=== PATIENT | female | born 1985 | race Caucasian/White ===

== ENCOUNTER 2018-06-09 06:46 | Inpatient (IN) | payer BC ==
[2018-06-09 07:51] VITALS: BMI 28.6
[2018-06-09] MEDS ORDERED: Ringers Lactate 1,000 ML IV PRN (07:51)
[2018-06-09] MEDS ORDERED: OXYTOCIN/LR 20 UNIT/1,000 ML BAG IV SCH ×2 (08:00→14:00)
[2018-06-09] MEDS ORDERED: Ringers Lactate 1,000 ML IV SCH (08:00)
[2018-06-09 08:31] LABS: RPR Titer ND
[2018-06-09 08:35] LABS: Absolute Lymphocytes (CBC) 2.2 K/uL (0.7-4.9); Absolute Monocytes 0.5 K/uL (0.1-1.3); Absolute Neutrophil 5.2 K/uL (1.8-8.0); Basophils % 1.1 % (0-1.3); Eosinophils % 1.4 % (0-4.4); Hematocrit 36.1 % (36.0-45.0); Lymphocytes % 27.5 % (15.3-44.8); MPV 11.1 fL (7.6-11.3); Monocytes % 5.6 % (3.3-12.3); RBC Red Blood Cell Count 4.09 M/uL (3.86-4.86)
[2018-06-09 08:53] LABS: Urine Appearance CLEAR; Urine Bilirubin NEGATIVE (NEG); Urine Blood NEGATIVE (NEG); Urine Color YELLOW; Urine Glucose NEGATIVE (NEG); Urine Protein NEGATIVE (NEG); Urine Specific Gravity 1.025 (1.005-1.030); Urine Urobilinogen 0.2 mg/dL (0.2-1.0); Urine pH 6.5 (5.0-7.0)
[2018-06-09 09:01] LABS: Urine Microscopic Reflex NO UMIC
[2018-06-09] MEDS ORDERED: FENTANYL CITR 100 MCG/2 ML IV ONE (09:26)
[2018-06-09] MEDS ORDERED: FENTANYL/BUPIVACAINE/NS/PF 200 MCG/100 ML BAG EP PRN (09:26)
[2018-06-09] MEDS ORDERED: BUPIVACAINE 0.25% PF 30 ML VIAL IV ONE (09:28)
--- NOTE | 2018-06-09 10:51 | PREOPHP ---
Date of Admission: 06/09/2018 History Of Present Illness: Ms. Piper is a 32-year-old female, 3, para 1- 0-1-1 now at 39+ weeks gestation. She has been followed by me during this without signific ant complications, now at term with a favorable cervix. She is scheduled for elective induction of l abor. Past Medical History: Please see record. Family History: Please see record. Review of Systems: She reports no recent cough, cold, fever, or chills. No recent nausea or vomiting. She denies any b reast lumps. Her baby has been active. She denies any significant vaginal bleeding. Physical Examination: General: Reveals a pleasant female, in no apparent distress. Neck: Supple without adenopathy or thyromegaly. Lungs: Clear. Cardiac: Regular rate and rhythm without murmurs. Breasts: Not examined. Abdomen: Estimated weight 6-1/2 to 7 pounds. Pelvic: Cervix noted to be 1+ cm dilated, 70% effaced. Cervix midposition, vertex, and -1 to -2 sta tion. Extremities: Trace lower extremity edema. Impression: 39+ week with favorable cervix. Plan: The patient will be admitted for elective induction of labor. She is beta strep negative. DEVANTE/DAVE Voice ID: [id number]
[2018-06-09] MEDS ORDERED: METHYLERGONOVINE 0.2MG/ML AMP IM ONE (12:46)
[2018-06-09] MEDS ORDERED: CARBOPROST TROME 250 MCG/ML IM ONE (12:46)
[2018-06-09] MEDS ORDERED: LIDOCAINE 2% INJ, 20 mL 20 ML ONE (13:05)
[2018-06-09] MEDS ORDERED: METHYLERGONOVINE 0.2 MG TAB PO PRN (13:19)
[2018-06-09] MEDS ORDERED: METHYLERGONOVINE 0.2MG/ML AMP IM PRN (13:19)
[2018-06-09] MEDS ORDERED: ONDANSETRON 4 MG (ODT) TAB PO PRN (13:19)
--- NOTE | 2018-06-09 14:08 | P.BOP ---
Preoperative diagnosis: 39+ week Postoperative diagnosis: Same, delivery viable female infant Primary procedure: SCVD female Secondary procedure: Repair of 2 degree midline laceration Estimated blood loss: 400ml Anesthesia: epidural Complications: None Transferred to: Other (274) Condition: Good
[2018-06-09] MEDS: Oxycodone HCl/Acetaminophen 1 TAB TAB PO PRN (16:41)
[2018-06-09] MEDS ORDERED: Ringers Lactate 1,000 ML IV ONE (18:31)
[2018-06-09] MEDS: IBUPROFEN 200 MG TAB PO PRN (21:08)
[2018-06-10 02:09] LABS: RPR (Rapid Plasma Reagin) NON-REACT (NON-REACT)
[2018-06-10] MEDS: IBUPROFEN 200 MG TAB PO PRN ×3 (03:25→16:41)
[2018-06-10] MEDS ORDERED: Ringers Lactate 1,000 ML IV ONE (08:48)
[2018-06-10] MEDS: Oxycodone HCl/Acetaminophen 1 TAB TAB PO PRN (12:00)
[2018-06-10 12:05] VITALS: BP 136/87; TEMP 97.9
--- NOTE | 2018-06-10 17:09 | OP ---
Surgeon: Miki Díaz MD Delivery Note: Carmen is a 32-year-old, , female, 3, para 1-0-1-1 now at 3 9+ weeks gestation, admitted for induction of labor. After she was noted to be 1+ to 2 cm on admissi on, rupture of membranes was performed and Pitocin induction of labor begun. She had an epidural cat heter placed, had a first stage of labor of 5 hours and 30 minutes, second stage of labor of 28 minut es. She delivered by spontaneous controlled vaginal delivery a 7-pound 1-ounce female , 9 and 9, after delayed cord clamping. The cord was clamped, cut, and the infant placed on mother's u pper abdomen. The placenta was spontaneously expelled after obtaining cord blood. She suffered a mi dline second-degree perineal laceration, which was repaired in the usual fashion with 3-0 Vicryl sutu re. Estimated total blood loss approximately 500 cc. Tolerated all procedures well. Epidural with supplement with local infiltration for repair for her episiotomy. DEVANTE/DAVE Voice ID: [id number] Report ID: [id number]
--- NOTE | 2018-06-10 17:09 | DS ---
Final Hospital Discharge Diagnoses: A 39+ week , delivered. Mild blood loss anemia. Complications: Mild blood loss anemia. Procedures: Artificial rupture of membranes. Pitocin induction of labor. Placement of epidural cath eter. Spontaneous controlled vaginal delivery of viable female . Repair of second-degree perin eal laceration. Hospital Course: The patient is a 32-year-old, , female, 3, para 1-0-1-1 at 39+ weeks gestation, underwent induction of labor. She delivered a 7-pound 1-ounce female infant, A pgar 9 and 9, was dismissed on the first day, ambulatory, on a select diet with routine po st vaginal delivery activity restrictions. She is to continue taking her iron and vitamins. Lab work obtained during this hospital stay included an admission hemoglobin and hematocrit of 12.1 and 36.1. Dismissal hematocrit 29.6. She is Rh positive blood type. Rubella immune. She will be dismissed with prescription for Tylenol No. 3 #10 for pain relief, to be seen back in my office in 6 weeks with the usual post vaginal delivery activity restrictions. DEVANTE/DAVE Voice ID: [id number] Report ID: [id number]
[2018-06-12 02:51] LABS: HBsAG Nonreactive (Nonreactive)
== END 2018-06-10 17:35 | disposition home or self-care (01) | DRG 806 ==
LOC: 2ND-WC 06:46
PROVIDERS: ADMIT Specialist; ATTEND Specialist
PROC: 10E0XZZ Delivery of Products of Conception, External Approach (ICD-10-PCS; principal; 2018-06-09)
PROC: 0KQM0ZZ Repair Perineum Muscle, Open Approach (ICD-10-PCS; 2018-06-09)
PROC: 10907ZC Drainage of Amniotic Fluid, Therapeutic from Products of Conception, Via Natural or Artificial Opening (ICD-10-PCS; 2018-06-09)
DX: O70.1 Second degree perineal laceration during delivery (principal); D62 Acute posthemorrhagic anemia; Z37.0 Single live birth; O99.02 Anemia complicating childbirth; Z3A.39 39 weeks gestation of pregnancy
CPT/HCPCS: 36415; 81003; 85014; 85025; 86592; 86850; 86900; 86901; 87340; J2210; J2590; J3010